=== PATIENT | female | born 1985 | race Caucasian/White ===

== ENCOUNTER → 2024-03-20 11:20 | Outpatient (REF) | payer OTHER, SELFPAY | LOC: HWRAD 11:20 | PROVIDERS: ATTENDING PHYSICIAN Physician Assistant Medical | DX: Z00.00 Encounter for general adult medical examination without abnormal findings (principal) | CPT/HCPCS: 76830; 76856 ==

== ENCOUNTER → 2024-08-28 10:00 | Outpatient (REF) | payer OTHER, SELFPAY | LOC: WDC 10:00 | PROVIDERS: ATTENDING PHYSICIAN Physician Assistant Medical | DX: N63.20 Unspecified lump in the left breast, unspecified quadrant (principal); N63.21 Unspecified lump in the left breast, upper outer quadrant | CPT/HCPCS: 76642; 77062; 77066 ==

== ENCOUNTER → 2025-02-23 13:52 | Outpatient (REF) | payer OTHER, SELFPAY | LOC: WDC 13:52 | PROVIDERS: ATTENDING PHYSICIAN Physician Assistant Medical | DX: R92.8 Other abnormal and inconclusive findings on diagnostic imaging of breast (principal) | CPT/HCPCS: 76642 ==

== ENCOUNTER 2025-03-28 11:00 | Emergency (ER) | payer OTHER, SELFPAY ==
[2025-03-28 11:04] VITALS: BP 137/96
[2025-03-28] MEDS: NSS 500 IV (12:38)
[2025-03-28 12:42] LABS: Hematocrit 41.2 % (37.0-47.0); Hemoglobin 14.4 g/dL (12.0-16.0); Mean Corp Hgb Conc. 35.0 g/dL (33.0-37.0); Mean Corpuscular Volume 86.9 fL (81.0-99.0); Nucleated Red Blood Cells % 0 %; Platelet Count 269 10^3/uL (130-400); Red Cell Dist. Width 11.9 % (11.5-14.5)
[2025-03-28 13:19] LABS: HCG, Serum Qualitative Screen Negative
[2025-03-28 13:26] LABS: Blood Urea Nitrogen 11 mg/dl (7-17); Calcium 10.0 mg/dl (8.4-10.2); Carbon Dioxide 25 mmol/L (22-30); Chloride 106 mmol/L (98-107); Glucose 94 mg/dl (70-99); Lipase 69 U/L (23-300); Sodium 137 mmol/L (135-145); eGFR > 60.00
--- NOTE | 2025-03-28 13:50 | ED.GENMED ---
History of Present Illness
<Jt Bob MD - Last Filed: 03/28/25 13:52>
General
Chief Complaint: Abdominal Pain
Source: patient
Exam Limitations: none
Time Seen by Provider: 03/28/25 12:16
History of Present Illness
History of Present Illness:
Patient with sudden onset right mid quadrant pain with bending over this morning. [place] fine prior. No radiation of the back. Had some brief nausea. Symptoms are moderately improved. Bowel movements normal. Menses normal. No fever chills or
urinary symptoms.
Past History
<Jt Bob MD - Last Filed: 03/28/25 13:52>
Past History
ED Past Medical History: Seizures (Keppra 1500 mg BID)
ED Past Surgical History: Other (wisdom teeth, hernia repair)
Social History
Tobacco: Smoker
Personal: Single
Living: with roommate
Employment: Employed (office work)
Review of Systems
<Jt Bob MD - Last Filed: 03/28/25 13:52>
Review of Systems
All Other Systems: Not applicable
Constitutional: Denies fever or chills
: Reports no symptoms
Phy Exam
<Jt Bob MD - Last Filed: 03/28/25 13:52>
Physical Exam
Physical Exam:
GENERAL: Alert and oriented in no apparent distress. Patient ambulated from the bathroom without difficulty
EYE: Orbits normal.
NECK: Supple
CARDIAC: Regular rate and rhythm without any obvious murmurs.
LUNGS: Clear breath sounds,normal
ABDOMEN: Soft, mild right mid quadrant tenderness 9:00 from the umbilicus. No pelvic tenderness no tenderness at McBurney's point. No rebound or guarding no mass or hernia. Currently no right upper quadrant tenderness.
NEUROLOGICAL: Alert and oriented , grossly non-focal
SKIN: Warm and dry, no rash or lesion, no discoloration, skin intact.
MUSCULOSKELETAL: No edema,no deformity.Good color
PSYCH: Normal and appropriate interaction.
Course
<Jt Bob MD - Last Filed: 03/28/25 13:52>
Orders/Labs/Results
Orders:
Orders
03/28/25 12:26
CT Abd/pel W Iv Cont (trauma) Urgent
Comment:
Reason For Exam: Sudden periumbilical abdominal pain
IV Insert/Care/Rem.- Treatment PRN
0.9% Sodium Chloride 500 ml [Nss] 500 ml IV BOLUS
Test Result ONCE
03/28/25 12:30
Basic Metabolic Panel Urgent
Complete Blood Count/With Diff Urgent
HCG, Serum Qualitative Screen Urgent
Lipase Urgent
03/28/25 14:29
Add On- LAB Urgent
Tests Added?: lfts
03/28/25 14:30
Urinalysis Reflex To Culture Urgent
Date Specimen was Collected: 03/28/25
Time Specimen was Collected: 14:24
Urine Microscopic Reflex Cult Urgent
03/28/25 14:34
Qchxa-Gqhd-Jgbzprd Urgent
Potassium Urgent
Abnormal Lab Results
03/28/25 03/28/25 03/28/25
12:30 14:30 14:34
Absolute Neuts (auto) 6.8 H 10^3/uL
(1.4-6.5)
Lymphocytes % 20.0 L %
(20.5-51.1)
Total Protein 6.2 L g/dl
(6.3-8.2)
Ur Occult Blood Reflex 1+ A
(Negative)
Urine RBC 7-10 A /HPF
(0-2)
03/28/25 12:30
03/28/25 14:34
Vital Signs
Initial and Last Documented VS:
Initial Vital Signs
Temp Pulse Resp BP Pulse Ox
98.9 F 95 18 137/96 100
03/28/25 11:04 03/28/25 11:04 03/28/25 11:04 03/28/25 11:04 03/28/25 11:04
Last Documented Vital Signs
Temp Pulse Resp BP Pulse Ox
98.9 F 95 18 137/96 100
03/28/25 11:04 03/28/25 11:04 03/28/25 11:04 03/28/25 11:04 03/28/25 13:52
<Khloe Chamberlain MD - Last Filed: 03/28/25 17:04>
Orders/Labs/Results
Orders:
Orders
03/28/25 12:26
CT Abd/pel W Iv Cont (trauma) Urgent
Comment:
Reason For Exam: Sudden periumbilical abdominal pain
IV Insert/Care/Rem.- Treatment PRN
0.9% Sodium Chloride 500 ml [Nss] 500 ml IV BOLUS
Test Result ONCE
03/28/25 12:30
Basic Metabolic Panel Urgent
Complete Blood Count/With Diff Urgent
HCG, Serum Qualitative Screen Urgent
Lipase Urgent
03/28/25 14:29
Add On- LAB Urgent
Tests Added?: lfts
03/28/25 14:30
Urinalysis Reflex To Culture Urgent
Date Specimen was Collected: 03/28/25
Time Specimen was Collected: 14:24
Urine Microscopic Reflex Cult Urgent
03/28/25 14:34
Gdnhk-Xmjr-Ravrgym Urgent
Potassium Urgent
Abnormal Lab Results
03/28/25 03/28/25 03/28/25
12:30 14:30 14:34
Absolute Neuts (auto) 6.8 H 10^3/uL
(1.4-6.5)
Lymphocytes % 20.0 L %
(20.5-51.1)
Total Protein 6.2 L g/dl
(6.3-8.2)
Ur Occult Blood Reflex 1+ A
(Negative)
Urine RBC 7-10 A /HPF
(0-2)
03/28/25 12:30
03/28/25 14:34
Vital Signs
Initial and Last Documented VS:
Initial Vital Signs
Temp Pulse Resp BP Pulse Ox
98.9 F 95 18 137/96 100
03/28/25 11:04 03/28/25 11:04 03/28/25 11:04 03/28/25 11:04 03/28/25 11:04
Last Documented Vital Signs
Temp Pulse Resp BP Pulse Ox
98.9 F 95 18 137/96 100
03/28/25 11:04 03/28/25 11:04 03/28/25 11:04 03/28/25 11:04 03/28/25 13:52
<Jt Bob MD - Last Filed: 03/28/25 13:52>
MDM/Problems Addressed
Differential Diagnosis Includes:
Patient with sudden onset of a right mid quadrant pain. Occurred while bending over. Etiologies would include ruptured cyst, appendicitis, musculoskeletal. I do not palpate a hernia. I highly doubt gallbladder there is no right upper quadrant
tenderness. There is no tenderness in the deep pelvis which makes a ruptured cyst unlikely. Labs are stable. We will get a CT scan for evaluation of sudden surgical issues
<Jt Bob MD - Last Filed: 03/28/25 13:52>
*Pulse Oximetry
SaO2: 100
Oxygen Mode of Delivery: Room air
Patient hypoxic: no
Data Reviewed
Review of Other/Old Records Reveals: Labs, Records and Testing
<Khloe Chamberlain MD - Last Filed: 03/28/25 17:04>
*Radiology
Radiology exam reviewed: radiology read reviewed
*Critical Care Note
Total Time (30-74mins, 75-104mins- exclusive of procedures): Not Applicable
<Khloe Chamberlain MD - Last Filed: 03/28/25 17:04>
Update Note
Update Note:
[address] shows no acute abnormality. I went to reassess patient to go over CAT scan findings. She is smiling and looks well and comfortable. Patient is happy to go home. Patient encouraged to follow-up with her primary care doctor if she
still experiencing pain. Patient told to come back to ED if she develops fever or vomiting
ED Attending Note
<Jt Bob MD - Last Filed: 03/28/25 13:52>
-
Portions of this chart may have been created with voice recognition software.� Occasional wrong word or��sound alike� substitutions may have occurred due to the inherent limitations of voice recognition software.
Discharge Plan
Departure
Patient Disposition: Home (Routine Discharge)
Date of Disposition: 03/28/25
Time of Disposition: 16:59
Patient with high blood pressure during this ER visit?: Yes
Condition: Good
Covid-19: Not Applicable
Discharge Problem:
Abdominal pain
Instructions: Abdominal Pain, BLOOD PRESSURE
Prescriptions:
No Action
Keppra
1,000 mg PO BID
Prenatabs Rx Tablet Tab
1 1 each PO BID
ibuprofen 600 MG tablet
600 mg PO Q6HPRN PRN (Reason: moderate pain/cramps) Qty: 30 0RF
docusate sodium 100 MG capsule
100 mg PO BID Qty: 0 0RF
oxycodone 5 MG tablet
5 mg PO Q4HPRN PRN (Reason: breakthrough/severe pain) Qty: 10 0RF
Referrals:
Kaylee Ely PA-C [Family Provider, Family Practice]
Interventions
Interventions:
*Risk Screen - Suicide Last Done: 03/28/25 11:04
*General Assessment Last Done: 03/28/25 11:04
*Neglect/Abuse Screening Last Done: 03/28/25 11:04
Discharge Date and Time
Print Language: [id number]
[2025-03-28 14:54] LABS: ALT (SGPT) 15 U/L (0-35); AST (SGOT) 19 U/L (14-36); Albumin 4.2 g/dl (3.5-5.0); Alkaline Phosphatase 83 U/L (38-126); Potassium 4.1 mmol/L (3.5-5.1); Total Protein 6.2 g/dl (6.3-8.2)
[2025-03-28 15:04] LABS: Urine Character Clear (Clear)
[2025-03-28 15:19] LABS: Urine White Cell 0-2 /HPF (0-5)
== END 2025-03-28 17:24 | disposition home or self-care (01) ==
LOC: EMR 11:00
PROVIDERS: EMERGENCY PHYSICIAN Emergency Medicine; FAMILY PHYSICIAN Physician Assistant Medical
DX: R10.33 Periumbilical pain (principal); R11.0 Nausea; F17.200 Nicotine dependence, unspecified, uncomplicated
CPT/HCPCS: 99284; 96360; 74177; 80048; 80076; 81003; 81015; 83690; 84132; 84703; 85025; Q9967

== ENCOUNTER → 2025-06-23 09:17 | Outpatient (REF) | payer OTHER, SELFPAY | LOC: HWRAD 09:17 | PROVIDERS: ATTENDING PHYSICIAN Nurse Practitioner; FAMILY PHYSICIAN Physician Assistant Medical | DX: N39.0 Urinary tract infection, site not specified (principal) | CPT/HCPCS: 76770 ==